=== PATIENT | male | born 1930 | race Caucasian/White ===

== ENCOUNTER 2019-11-06 17:38 | Inpatient (IN) | payer OTHER, MEDICARE ==
[~2019-11-06] VITALS: Wt 86.2 kg
--- NOTE | ~2019-11-06 | EMS ---
[address] [address] EMS Patient Care Report Name: GAURAV DAVID Room #: PRE M.R.#: [id number] Admission: Attend Phys: Discharge: Date of : [birth year] Report #: [id number] THIS REPORT FOR: //name// Report Transmitted: 11/06/2019 17:22 EMS Care Summary [facility] MED-ACT Incident [id number] @ 11/06/2019 16:53 Incident Location [address] [place] [address] Patient GAURAV DAVID Male, 78 Years 1941-06-16 Patient Address [id number] [place] [address] Patient History Hypertension (HTN),Atrial Fibrillation,Supraventricular Tachycardia (SVT), Patient Allergies No known allergies, Patient Medications Xarelto, Finasteride, Hydralazine, Tamsulosin, Metoprolol, Pantoprazole, Diltiazem, Chief Complaint Slip and fall Disposition Transported No Lights/[place] Reason Falls Transported To [facility] Narrative Arriving on scene to find the patient, Gaurav David, lying prone in his bathroom. [address] [address] EMS Patient Care Report Name: GAURAV DAVID Room #: PRE M.R.#: [id number] Admission: Attend Phys: Discharge: Date of : [birth year] Report #: [id number] Gaurav was rolled onto his back on a blanket. Gaurav stated when he was transferring over to his wheelchair his wheelchair slid away and he slid to the ground. He stated that he slid to the ground around noon today and was unable to get help due to the position he was in. He denied hitting his head, trauma, fever, cold chills, SOB, chest pain, and or syncope. He complained of only right shoulder pain rating to be a 2 out of 10. Son stated that he would like Gaurav to be transported to [facility]. Gaurav was moved via sheet carry to the cot. Transporting to [facility], EMS noticed that Gaurav was in A-fib at a high rate. Gaurav was notified and he stated that he feels fine and that he has a history of a-fib. There were no additional findings on continuous assessments. Arriving at [facility] ED, He was moved via lateral sheet drag onto the hospital bed in the pathak. Report and care was given to RN. Initial Vitals @17:31P: 146,TN Suspected: false @17:28P: 178,TN Suspected: false @17:33P: 175,BP: 165/142,SpO2: 92, @17:31P: 192, @17:34P: 199,BP: 108/68, @17:32P: 196, @17:32P: 169,BP: 134/94, @17:35P: 193, @17:34P: 196, @17:20P: 117,R: 16,BP: 131/84,Pain: 2/10,GCS: 15,SpO2: 93,Revised Trauma: 12, Assessments @17:18MENTAL:Person Oriented,Time Oriented,Event Oriented,Place Oriented,SKIN:HEENT:Head/Face: Swelling,Head/Face: Other,Eyes: Left Pupil: 2-mm,Eyes: Right Pupil: 2-mm,Neck/Airway: No Abnormalities,LUNG SOUNDS:General: No Abnormalities,ABDOMEN:General: No Abnormalities,PELVIS//GI:No Abnormalities,EXTREMITIES:Right Leg: Other,Left Leg: Other,Left Arm: Other,Right Arm: Other,PULSE:NEURO:No Abnormalities, Impression Injury of Head Procedures @17:3112-Lead ECGResponse: UnchangedSucceeded@17:3512-Lead ECGResponse: Unchanged Timeline 16:50,Call Received 16:50,Psap Call 16:53,Dispatched 16:53,En Route 16:59,On Scene [address] [address] EMS Patient Care Report Name: GAURAV DAVID Room #: PRE ER M.R.#: [id number] Admission: Attend Phys: Discharge: Date of : [birth year] Report #: [id number] 17:04,At Patient 17:20,BP: 131/84 M,PULSE: 117,RR: 16 R,SPO2: 93 Ox,ETCO2: ,BG: ,PAIN: 2,GCS: 15, 17:22,Depart Scene 17:28,BP: / M,PULSE: 178,RR: R,SPO2: Ox,ETCO2: ,BG: ,PAIN: ,GCS: , 17:31,12-Lead ECG,Response: UnchangedSucceeded, 17:31,BP: / M,PULSE: 146,RR: R,SPO2: Ox,ETCO2: ,BG: ,PAIN: ,GCS: , 17:31,BP: / M,PULSE: 192,RR: R,SPO2: Ox,ETCO2: ,BG: ,PAIN: ,GCS: , 17:32,BP: 134/94 M,PULSE: 169,RR: R,SPO2: Ox,ETCO2: ,BG: ,PAIN: ,GCS: , 17:32,BP: / M,PULSE: 196,RR: R,SPO2: Ox,ETCO2: ,BG: ,PAIN: ,GCS: , 17:33,BP: 165/142 M,PULSE: 175,RR: R,SPO2: 92 Ox,ETCO2: ,BG: ,PAIN: ,GCS: , 17:34,BP: / M,PULSE: 196,RR: R,SPO2: Ox,ETCO2: ,BG: ,PAIN: ,GCS: , 17:34,BP: 108/68 M,PULSE: 199,RR: R,SPO2: Ox,ETCO2: ,BG: ,PAIN: ,GCS: , 17:35,12-Lead ECG,Response: Unchanged 17:35,BP: / M,PULSE: 193,RR: R,SPO2: Ox,ETCO2: ,BG: ,PAIN: ,GCS: , 17:37,At Destination 17:52,Call Closed Disclaimer v1.1 Copyright 2020 [employer] This EMS Care Summary contains data elements from the applicable legal record (which may be displayed differently). It is designed to provide pertinent information for the following purposes: continuity of care, clinical quality, and state data reporting. The complete legal record is available to ED staff and administrators of the receiving hospital in [employer]'s Patient Tracker. All data is provided "as is."
[~2019-11-06 17:38] MED LIST: ACIDOPHILUS1 EAC5 PO; ADULT LOW DOSE81 MG PO; ALEVE COLD & S1 EACH PO; APAP500 PO; ASPIRIN EC81 M1 PO; CEFDINIR300 MG PO; DILTIAZEM 24HR180 M1 PO; DILTIAZEM 24HR180 MG PO; FINASTERIDE5 MG PO; HYDRALAZINE 2525 MG PO; KLOR-CON 10 ER10 MEQ PO; MAGNESIUM400 MG PO; NORCO 5-325 TA1 EACH PO; PANTOPRAZOLE SO40 MG PO; TAMSULOSIN HCL0.4 M1 PO; TOPROL XL50 MG PO; XARELTO; XARELTO20 MG PO
[2019-11-06 18:11] LABS: BASOPHILS 0.1 % (0.0-2.0); HEMATOCRIT 38.8 % (42.0-52.0); HEMOGLOBIN 12.1 gm/dL (14.0-18.0); LYMPHOCYTES 3.2 % (24.0-44.0); MCH 25.3 pg (26.0-34.0); MCHC 31.2 g/dL (28.0-37.0); MCV 81.3 fL (80.0-100.0); MONOCYTES 5.2 % (1.0-8.0); PLATELET COUNT 254 thou/uL (150-400); POLYS 91.5 % (36.0-66.0); RBC 4.78 mil/uL (4.50-6.00); RDW 17.6 % (10.5-14.5); WBC 13.1 thou/uL (4.0-11.0)
[2019-11-06 18:17] LABS: CREATININE 1.3 mg/dL (0.7-1.3)
[2019-11-06 18:22] LABS: APTT 41.2 Seconds (24.5-32.8); INR 1.2
[2019-11-06 18:23] LABS: TOTAL BILIRUBIN 1.7 mg/dL (0.2-1.0); TOTAL PROTEIN 7.5 g/dL (6.4-8.2)
[2019-11-06 18:36] LABS: MAGNESIUM 1.6 mg/dL (1.8-2.4); TROPONIN-I 0.06 ng/mL (<0.06)
[2019-11-06 22:32] LABS: URINE BLOOD 3+ (Negative); URINE CLARITY SL CLOUDY; URINE COLOR YELLOW; URINE GLUCOSE-RANDOM* NEGATIVE (Negative); URINE KETONES TRACE (Negative); URINE NITRITE-REFLEX NEGATIVE (Negative); URINE PROTEIN (DIPSTICK) 2+ (Negative); URINE SPECIFIC GRAVITY >= 1.030 (1.005-1.035)
[2019-11-06 22:34] LABS: ICTOTEST (BILI CONFIRMATORY) Negative (Negative); URINE LEUKOCYTES-REFLEX 2+ (Negative)
[2019-11-06 22:47] LABS: URINE BILIRUBIN NEGATIVE (Negative)
[2019-11-06 22:48] LABS: BACTERIA-REFLEX >30 Many /HPF (None Seen); CRYSTALS None Seen /LPF (None Seen); FINE GRANULAR CASTS 0-3 Few /LPF (None Seen); MUCUS 4-6 Moderate strn/LPF (None Seen); SQUAMOUS >10 Many /LPF (0-3); URINE WBC-REFLEX >25 Many /HPF (0-5)
[2019-11-06 22:50] VITALS: BP 118/61
[2019-11-06 23:38] VITALS: BP 127/65
[2019-11-07] VITALS (9 sets, daily range): BP systolic 107–149; BP diastolic 58–88
--- NOTE | 2019-11-07 04:39 | NUR ---
PT ALERT AND ORIENTED X4. BUT CAN BE FORGETFUL AT TIMES. REORIENTS EASILY. CARDIZEM GTT INCREASED BACK TO 15 MG DUE TO HR STAYING >120. PLACED PT ON 02 PER NC DUE TO DESATS WHILE ASLEEP. HAD TO INCREASE TO 3LNC. LUNGS SOUND DIMINISHED. INSTRUCTED PT ON FALL PRECAUTIONS. BED ALARM IS ON. SIDE RAILS UP X2. PICTURES TAKEN OF ARMS AND BUTTOCK WOUNDS. MOISTURE BARRIER APPLIED TO BUTTOCKS. WILL CONTINUE TO MONITOR PT FOR CHANGES.
[2019-11-07 05:53] LABS: HEMATOCRIT 35.3 % (42.0-52.0); HEMOGLOBIN 10.9 gm/dL (14.0-18.0); MCHC 30.9 g/dL (28.0-37.0); MCV 80.9 fL (80.0-100.0); RBC 4.36 mil/uL (4.50-6.00); RDW 17.2 % (10.5-14.5); WBC 11.2 thou/uL (4.0-11.0)
[2019-11-07 06:21] LABS: ALBUMIN 2.6 g/dL (3.4-5.0); CALCIUM 8.4 mg/dL (8.5-10.1); POTASSIUM 3.7 mmol/L (3.5-5.1); TOTAL BILIRUBIN 1.2 mg/dL (0.2-1.0); TOTAL PROTEIN 6.6 g/dL (6.4-8.2)
--- NOTE | 2019-11-07 06:56 | NUR ---
INCREASED CARDIZEM GTT TO 15 MG. BP STABLE. HR FLUCTUATING 102-120S. INC OF URINE SEVERAL TIMES. PT STATED THE COVERS PREVENT HIM FROM GETTING TH URINAL IN PLACE ON TIME BEFORE URINE COMES OUT. PT SLIGHTLY CONFUSED AND FORGETFUL. DROPS URINAL ETC.
[2019-11-07] MEDS ORDERED: PROTONIX40 M1 PO (12:35)
--- NOTE | 2019-11-07 12:38 | NUR ---
WOUND CONSULT; DISCUSSED THE PATIENT AND REVIEWED THE WOUND PICTURES WITH THE RN TODAY. THE BUTTOCKS WOUNDS ARE STAGE 2. NO S/S OF INFECTION. THE BILATERAL FORARMS HAVE SKIN TEARS. RECOMMENDATIONS; 1-BILATERAL BUTTOCKS ZGUARD BID 2-BILATERAL FORARMS XEROFORM,COVER WITH A BORDER FOAM, DAILY/PRN 3-TURN THIS PATIENT Q2H AT A MINIMUM. RN PRESENT
--- NOTE | 2019-11-07 15:19 | NUR ---
INITIAL ASSESSMENT: MARLENY reviewed chart and spoke with nursing and attending physician. Pt was admitted from [facility] after a fall in his apt. Pt placed in Enhanced Isolation to r/o COVID-19. Test results are pending. Pt with a-fib with RVR. Pt with hx of bilateral AKA. MARLENY spoke with Brittni Ann liaison, who states that pt does live alone in an apt in [place] apt[place]. MARLENY placed call to pt's room. No answer. MARLENY spoke with pt's son, Josué, via phone. Introduced role of SW. Pt is normally independent in his apt. Pt has w/c and the apt is accessible for pt. No current HH services. Pt has used [facility] in the past for HH. Pt has been to [facility]. MARLENY discussed discharge plans with pt's son: post-acute placement v. Home with HH. Pt's son states that pt/family would prefer pt return to his apt with HH if needed. Preference would be [facility] v. SNF, as pt would be in quarantine in the SNF for 14 days. Pt's family is able to take pt on outings during the week. [facility] consult ordered. Pt's PCP is Dr. Anthony Valdovinos. SW requested therapy evals. SW is following to assist as needed with discharge planning.
--- NOTE | 2019-11-07 22:07 | NUR ---
PT ALER AND ORIENED X4 WITH PERIODS OF FORGETFULNESS. HE THINKS HE'S AT HOME SOMETIMES AND THINKS ITS TIME FOR BREAKFAST ETC. VSS. HR 101 CURRENTLY WITH CARDIZEM DRIP ON. NO C/O PAIN. NO C/O SOA. SHAKEEL MATTRESS ON. TURNING PT Q 2 HRS. MOISTURE BARRIER APPLIED TO BUTTOCKS. BED ALARM IS ON CONDOM CATHETER ON. WILL CONTINUE TO MONITOR PT FOR CHANGES.
[2019-11-08 04:11] VITALS: BP 138/103
--- NOTE | 2019-11-08 05:12 | NUR ---
PT RESTING QUIETLY. NO S/S DISTRESSHR 99 CARDIZEM STILL AT 15 MG/HR.
[2019-11-08 05:26] LABS: ABSOLUTE NEUTROPHILS 11.5 thou/uL (1.4-8.2); BASOPHILS 0.2 % (0.0-2.0); EOSINOPHILS 0.4 % (0.0-3.0); HEMATOCRIT 35.6 % (42.0-52.0); HEMOGLOBIN 11.2 gm/dL (14.0-18.0); MCH 25.5 pg (26.0-34.0); MCHC 31.4 g/dL (28.0-37.0); MCV 81.4 fL (80.0-100.0); PLATELET COUNT 223 thou/uL (150-400); POLYS 88.4 % (36.0-66.0); RBC 4.37 mil/uL (4.50-6.00); RDW 17.3 % (10.5-14.5)
[2019-11-08 06:01] LABS: CALCIUM 8.2 mg/dL (8.5-10.1); CREATININE 0.8 mg/dL (0.7-1.3); POTASSIUM 3.8 mmol/L (3.5-5.1)
--- NOTE | 2019-11-08 07:37 | EKG ---
[facility] [place] [address] ELECTROCARDIOGRAM REPORT Name: MARCIE DAVID Room #: 353-P ADM IN M.R.#: [id number] Admission: 11/06/19 Attend Phys: Rishi Carey MD Discharge: Date of : [birth year] Report #: [id number] THIS REPORT FOR: cc: Mariusz Valdovinos MD, Christopher B. MD Lundgren,David Reagan MD [facility] ~ THIS REPORT FOR: //name// [facility] ED Test Date: 2019-11-06 Test Time: 17:40:19 Pat Name: MARCIE DAVID Department: Room: 353 P Gender: M Ophthalmic Assistant: lali : 1930 Requested By: Rishi Carey Order Number: [id number] MD: David Martin Measurements Intervals [place] Rate: 174 P: NH: QRS: -66 QRSD: 105 T: 104 QT: 280 QTc: 477 Interpretive Statements Atrial fibrillation with rapid V-rate Poor R wave progression Left anterior fascicular block Repolarization abnormality, prob rate related Compared to ECG 11/15/2015 01:35:17 Heart rate has increased Prolonged QT interval no longer present Electronically Signed On 11-08-2019 7:37:25 CDT by David Martin [email or web address] <ELECTRONICALLY SIGNED> By: David Martin MD, [facility] 11/08/19 0737 [id number] David Martin MD, [facility] /EPI
[2019-11-08 07:51] VITALS: BP 134/98
[2019-11-08 11:12] VITALS: BP 132/89
--- NOTE | 2019-11-08 15:04 | NUR ---
SW reviewed chart and spoke with nursing and attending physician. Pt is in Enhanced Isolation to r/o COVID-19. Pt's repeat test is pending. Pt did have a feber and is on 3L of O2. Pt is on cardizem gtt and IV abx. PT/OT evals are pending at this time. [facility] consult ordered to evaluate pt for admission to in acute rehab. MARLENY spoke with pt via phone. Introduced role of SW. Pt states that he is ready to go home. SW discussed possibility of going to [facility] if rehab is needed. Pt states he would rather go home with HH. Awaiting therapy evals at this time. MARLENY is following to assist as needed with discharge planning.
[2019-11-08 15:07] VITALS: BP 158/98
--- NOTE | 2019-11-08 19:31 | NUR ---
ASSUMED CARE APPROX 0700. PT ALERT AND ORIENTED X4. ASSESSMENTS CHARTED AND VSS. PT ON 3LNC W/O DISTRESS NOTED. PT DENIES PAIN. PT SLEEPING FOR MOST OF DAY. LACK OF APPETITE. PT'S SON UPDATED ON STATUS. COVID RESULTS STILL PENDING. PT STILL ON CARDIZEM GTT AND HR AND BP HAVE BEEN STABLE. WILL CONTINUE TO MONITOR.
[2019-11-08 20:10] VITALS: BP 148/74
[2019-11-09] VITALS: BP 142/82; BP 142/83
--- NOTE | 2019-11-09 00:57 | NUR ---
assumed pt care at the chnage of shift, pt is awake, alert and oriented during assessment. remains on cardizem gtt, bp and hr remains stable, afib on the monitor, assessments as charted, pt is on 4l nc o2 sat was at 87 on 3l, refused turn, medications amninistered as per may, denies pain, remians stable, no ditress noted, passed on report at 2315 to the nurse taking over, covid results still pending
[2019-11-09 03:30] VITALS: BP 128/79
[2019-11-09 06:11] LABS: HEMATOCRIT 33.3 % (42.0-52.0); HEMOGLOBIN 10.3 gm/dL (14.0-18.0); MCH 25.3 pg (26.0-34.0); MCHC 30.9 g/dL (28.0-37.0); MCV 81.9 fL (80.0-100.0); RBC 4.07 mil/uL (4.50-6.00); RDW 17.4 % (10.5-14.5); WBC 8.9 thou/uL (4.0-11.0)
[2019-11-09 06:25] LABS: CALCIUM 8.2 mg/dL (8.5-10.1); CREATININE 0.8 mg/dL (0.7-1.3); POTASSIUM 3.9 mmol/L (3.5-5.1)
--- NOTE | 2019-11-09 11:13 | NUR ---
MARLENY received call from pt's son, Josué, requesting and update on pt's condition and COVID test results. MARLENY reviewed chart. Pt remains in Enhanced Isolation to r/o COVID-19. Repeat test from 11/06 is pending. Awaiting therapy evals at this time. Pt's son requesting to speak with a physician for an update as the family has not spoken with a physician. MARLENY provided Josué's contact info to attending physician. Pt and family would prefer for [place] if needed. Kathi is following and will evaluate after therapy has seen pt. MARLENY is following to assist as needed with discharge planning.
[2019-11-09 16:47] LABS: TOTAL PROTEIN 6.4 g/dL (6.4-8.2)
--- NOTE | 2019-11-09 17:29 | NUR ---
PT ARRIVED TO UNIT FROM 3W AT APPROX 1630. PT AWAKE, ALERT AND ORIENTED. VSS. DENIES PAIN. PT TACHYPNEIC, O2 4L NC. PULM CONSULT. PT TO HAVE THORACENTESIS TOMORROW. PT CURRENTLY RESTING IN BED. ORDER FOR ADALI FROM PHYSICIAN. WILL CONT TO MONITOR.
[2019-11-09 17:43] VITALS: BP 147/81
--- NOTE | 2019-11-09 18:25 | NUR ---
PATIENT TRANSFERE TO . FAMILY INFORMED.
[2019-11-09 19:50] VITALS: BP 155/70
[2019-11-09 20:00] VITALS: BP 155/70
[2019-11-10] VITALS (7 sets, daily range): BP systolic 129–155; BP diastolic 67–95
--- NOTE | 2019-11-10 03:28 | NUR ---
assumed pt care at the change of shift, pt is drowsy during assessment, alert and oriented with forgetfulness, remains on cardizem gtt, afib on the monitor, assessments as charted, pt 02 sat at 87-90 on 4l, pt put on 6l, o2sat stable in the low 90s, denies pain, refused bipap, slept well, no ditress noted, will continue to monitor
[2019-11-10 08:28] LABS: HEMATOCRIT 34.5 % (42.0-52.0); MCH 25.6 pg (26.0-34.0); MCHC 31.8 g/dL (28.0-37.0); MCV 80.7 fL (80.0-100.0); RBC 4.28 mil/uL (4.50-6.00); RDW 17.2 % (10.5-14.5); WBC 8.9 thou/uL (4.0-11.0)
[2019-11-10 08:37] LABS: CALCIUM 8.7 mg/dL (8.5-10.1); CREATININE 0.8 mg/dL (0.7-1.3); MAGNESIUM 1.9 mg/dL (1.8-2.4); POTASSIUM 4.1 mmol/L (3.5-5.1)
--- NOTE | 2019-11-10 10:18 | 2DMMODE ---
[facility] [place] [address] 2 D/M-MODE ECHOCARDIOGRAM Name: MARCIE DAVID Room #: 214-P ADM IN M.R.#: [id number] Admission: 11/06/19 Attend Phys: Rishi Carey MD Discharge: Date of : [birth year] Report #: [id number] THIS REPORT FOR: cc: Mariusz Valdovinos MD, Christopher B. MD Lammoglia, Francisco J. MD ~ APPROVED REPORT Study performed: 11/10/2019 09:09:52 EXAM: Comprehensive 2D, Doppler, and color-flow Echocardiogram Patient Location: Bedside Status: routine BSA: 1.61 BP: 138/77 mmHg Other Information Study Quality: Poor Indications Hypertension/HDD 2D Dimensions RVDd: 36.77 mm IVSd: 11.49 (7-11mm) LVDd: 28.12 mm PWd: 11.43 (7-11mm) LVDs: 29.78 (25-40mm) Left Atrium: 36.91 (27-40mm) Volumes Left Atrial Volume (Systole) Single Plane 4CH: 56.76 mL Aortic Valve LVOT Max P.56 mmHg LVOT Max V: 0.62 m/s Mitral Valve MV Decel. Time: 203.18 ms MV E Max Antonio.: 0.92 m/s IVRT: 83.04 ms [facility] [employer] [place] [address] 2 D/M-MODE ECHOCARDIOGRAM Name: MARCIE DAVID Room #: 214-P ADM IN M.R.#: [id number] Admission: 11/06/19 Attend Phys: Rishi Carey MD Discharge: Date of : [birth year] Report #: [id number] Pulmonary Valve PV Peak Antonio.: 0.77 m/s PV Peak Gr.: 2.41 mmHg Tricuspid Valve TR Peak Antonio.: 3.35 m/s TR Peak Gr.: 44.86 mmHg Left Ventricle Very technically difficult study. Patient refused to complete the study. Constant coughing. Very limited study. The left ventricle is normal size. There is normal left ventricular wall thickness. Left ventricular systolic function is mildly decreased. Estimated LVEF of 45-50%. This study is not technically sufficient to allow evaluation of the LV diastolic function due to atrial fibrillation. Right Ventricle Right ventricle is mildly dilated. The right ventricular systolic function is normal. Atria Left atrium is not well visualized. The right atrium size is normal. Aortic Valve The aortic valve is visually normal in structure. Mild aortic regurgitation. Aortic valve is not assessed by Doppler. Mitral Valve The mitral valve is normal in structure. Moderate mitral regurgitation. Tricuspid Valve The tricuspid valve is normal in structure. Moderate tricuspid regurgitation. Pulmonic Valve The pulmonary valve is normal in structure. Mild pulmonic regurgitation. Great Vessels Aortic root is not well visualized. IVC is not seen. Pericardium There is no pericardial effusion. [facility] [address] [place] [address] 2 D/M-MODE ECHOCARDIOGRAM Name: MARCIE DAVID Room #: 214-P ADM IN M.R.#: [id number] Admission: 11/06/19 Attend Phys: Rishi Carey MD Discharge: Date of : [birth year] Report #: [id number] <Conclusion> Very technically difficult study. Patient refused to complete the study. Constant coughing. Very limited study. The left ventricle is normal size. Estimated LVEF of 45-50%. Right ventricle is mildly dilated. Left atrium is not well visualized. The right atrium size is normal. The aortic valve is visually normal in structure. Mild aortic regurgitation. The mitral valve is normal in structure. Moderate mitral regurgitation. The tricuspid valve is normal in structure. Moderate tricuspid regurgitation. The pulmonary valve is normal in structure. Mild pulmonic regurgitation. There is no pericardial effusion. <ELECTRONICALLY SIGNED> By: Connor Jones MD 11/10/19 1018 [id number] [id number] Connro Jones MD /INF
--- NOTE | 2019-11-10 10:33 | NUR ---
WOUND CARE FOLLOW UP; ROUNDING WITH DEE LEE RN. ASSESSMENT OF THE PATIENTS UPPER EXTREMITIES. THE RUE WOUND IS HEALED. THE LEFT CONTINUES TO IMPROVE. IT IS LESS PAINFUL. NO S/S OF INFECTION SEEN. RECOMMENDASTIONS; CONTINUE POC DISCUSSED WITH RN
[2019-11-10 11:34] LABS: SOURCE RIGHT CHEST; TOTAL VOLUME 25 mL
[2019-11-10 11:35] LABS: CLARITY CLOUDY; COLOR DARK YELLOW
[2019-11-10 12:23] LABS: BF NUCLEATED CELLS 1374 /mm3; BF RBC 5729 /mm3
--- NOTE | 2019-11-10 13:01 | NUR ---
ASSUMED CARE PT SHIFT CHANGE. ASSESSMENTS CHARTED.MEDS GIVEN PER MAY. PT ALERT AND ORIENTED X2. VSS. DENIES PAIN. O2 SATS WNL ON 6L. SON AT BEDSIDE THIS AM. THORACENTESIS DONE THIS SHIFT. 1.2 L TAKEN OFF PER REPORT. DR SALGADO CONSULTED PER HOSPITALIST ORDERS. PT CURRENTLY RESTING IN BED IN NO APPARENT DISTRESS. WILL CONT TO MONITOR. REPORT PASSED ONTO JUJU ALFONSO.
[2019-11-10 13:05] LABS: BF MACROPHAGE 9 %; BF NEUTROPHILS 75 %
--- NOTE | 2019-11-10 13:22 | NUR ---
MID SHIFT CHANGE: ASSUMED CARE AT 1230PM, PT IS SLIGHTLY [place], NOT IMPULSIVE, A&0X2-3, THOUGHT HE WAS GETTING READY TO GO UPSTAIRS. GOT A WARM BLANKET AND OFFERED TO HEAT UP HIS FOOD AND HE DECLINED AT THIS TIME. WILL CONTINUE TO MONITOR. SEE SEPARATE INTERVENTIONS FOR ASSESSMENTS. TURNS MUCH HE WILL ALLOW D/T SKIN INTEGRITY.
[2019-11-10 15:53] LABS: SOURCE THORACENTESIS
--- NOTE | 2019-11-10 21:55 | NUR ---
PT UPON ASSESSEMNT HEART RATE WAS ELEVATED 165 GAVE METOLPORLOL. THEN BRADYCARDIA TO ASYSTOLE. PT IS A NO CODE. NOTIFIED FAMILY. AND FAMILY CAME TO SEE PT. FAMILY REPORTS HE HAD BEEN THROUGH ALOT WITH HIS HEALTH CARE AND CANCER WITH METS. FAMILY ONE AT A TIME VISIITN AND SAYING GOOD BYE TO THERE DAD IN THE ROOM. [place] [employer]ANT NOTIFIED NOT A CANIDATE FOR DONOR.
--- NOTE | 2019-11-11 13:07 | PATH ---
[facility] [address] [place] [address] PATHOLOGY RPT PROCEDURE Name: MARCIE DAVID Room #: 214-P [facility] IN M.R.#: [id number] Admission: 11/06/19 Date of : [birth year] Discharge: 11/10/19 Report #: [id number] Path Case #: [id number] Note [facility] Accession Number: [id number] TESTS RESULT FLAG UNITS REF RANGE LAB Clinician Provided Cytology Information No. of containers..01 Other (Miscellaneous) Source: 01 PLEURAL FLUID DIAGNOSIS: 02 PLEURAL FLUID NEGATIVE FOR MALIGNANT CELLS. REACTIVE MESOTHELIAL CELLS ARE PRESENT. THIS INTERPRETATION INCLUDES EVALUATION OF A CELL BLOCK. Signed out by: 02 Anthony Wilcox MD, Pathologist NPI- [id number] Performed by: 01 Randa Hammond, [employer] ([facility]) Gross description: 01 5ML, CLEAR YELLOW, 1 TP 1 CB /LCS 11/10/2019 1421 Local FLAG LEGEND: L-Low Normal,H-High Normal,LL-Alert Low,HH-Alert High <-Panic Low,>-Panic High,A-Abnormal,AA-Critical Abnormal Performed at: [address] [id number] Dereck Mata MD, [address] [place] [id number] Carlita Watson MD, Specimen Comment: Report sent to Performed at: [address] [address], [place], [place] [id number] MD Dereck Mata MD Phone: [phone]
[2019-11-12 10:07] LABS: BODY FLUID ALBUMIN 0.7 g/dL (Not Estab.); BODY FLUID AMYLASE 10 U/L (()); BODY FLUID GLUCOSE 125 mg/dL (()); BODY FLUID LDH 126 IU/L (()); BODY FLUID PROTEIN 1.6 g/dL (())
== END 2019-11-10 21:55 | DRG 871 ==
LOC: ER 17:38 → EROBS 21:08 → 3W 21:08 → 2N 11-09 17:16
PROVIDERS: Emergency Medicine; Internal Medicine; Nurse Practitioner Family; ADMIT Hospitalist; ATTEND Hospitalist
PROC: 0W993ZZ Drainage of Right Pleural Cavity, Percutaneous Approach (ICD-10-PCS; principal; 2019-11-10)
DX: A41.9 Sepsis, unspecified organism (principal); J96.01 Acute respiratory failure with hypoxia; J18.9 Pneumonia, unspecified organism; C79.9 Secondary malignant neoplasm of unspecified site; N39.0 Urinary tract infection, site not specified; I48.21 Permanent atrial fibrillation; J91.8 Pleural effusion in other conditions classified elsewhere; T79.6XXA Traumatic ischemia of muscle, initial encounter; Z20.828 Contact with and (suspected) exposure to other viral communicable diseases; I10 Essential (primary) hypertension; I73.9 Peripheral vascular disease, unspecified; Z66 Do not resuscitate; R91.1 Solitary pulmonary nodule; G47.00 Insomnia, unspecified; Z51.5 Encounter for palliative care; Z99.3 Dependence on wheelchair; R47.02 Dysphasia; Z89.612 Acquired absence of left leg above knee; Z89.611 Acquired absence of right leg above knee; Z79.01 Long term (current) use of anticoagulants; Z90.49 Acquired absence of other specified parts of digestive tract; Z83.3 Family history of diabetes mellitus; Z82.49 Family history of ischemic heart disease and other diseases of the circulatory system; Z79.899 Other long term (current) drug therapy; W18.39XA Other fall on same level, initial encounter; Y93.89 Activity, other specified; Y92.098 Other place in other non-institutional residence as the place of occurrence of the external cause; Y99.8 Other external cause status
CPT/HCPCS: 10081; 10879